=== PATIENT | female | born 1940 | race Caucasian/White ===

== ENCOUNTER 2020-06-26 11:13 | Observation (INO) | payer MEDICARE, MEDICAID ==
[2020-06-19 16:03] LABS: BASOPHILS % (AUTO) 0.3 % (0-1); EOSINOPHILS # (AUTO) 0.1 X10'3 (0-0.9); EOSINOPHILS % (AUTO) 1.4 % (0-6); LYMPHOCYTES # (AUTO) 0.9 X10'3 (1.1-4.8); LYMPHOCYTES % (AUTO) 22.4 % (21-51); MEAN CORPUSCULAR HEMOGLOBIN 30.4 PG (27.0-31.0); MEAN CORPUSCULAR HGB CONC 33.3 g/dL (33.0-36.5); MEAN CORPUSCULAR VOLUME 91.5 FL (78-98); MEAN PLATELET VOLUME 7.4 FL (7.4-10.4); MONOCYTES # (AUTO) 0.4 X10'3 (0-0.9); MONOCYTES % (AUTO) 11.1 % (2-12); NEUTROPHILS # (AUTO) 2.6 X10'3 (1.8-7.7); NEUTROPHILS % (AUTO) 64.8 % (42-75); PRE OP HEMATOCRIT 35.4 % (35.0-45.0); PRE OP HEMOGLOBIN 11.8 g/dL (12.0-16.0); PRE OP PLATELET COUNT 323 X10'3 (140-440); RED BLOOD COUNT 3.86 X10'6 (4.20-5.60); RED CELL DISTRIBUTION WIDTH 13.5 % (11.5-14.5)
[2020-06-19 16:11] LABS: ALBUMIN 3.8 G/DL (3.4-5.0); ALBUMIN/GLOBULIN RATIO 0.9 (1.1-1.5); ALKALINE PHOSPHATASE 98 IU/L (46-116); BLOOD UREA NITROGEN 24 MG/DL (7-18); BUN/CREATININE RATIO 27.9 (6.6-38.0); CALCIUM 9.2 MG/DL (8.5-10.1); CHLORIDE 103 MMOL/L (99-107); CREATININE 0.86 MG/DL (0.40-0.90); PRE OP ALT 34 U/L (30-65); PRE OP ANION GAP 4 (8-16); PRE OP AST 28 U/L (10-37); PRE OP BILIRUB, TOTAL 0.4 MG/DL (0.0-1.0); PRE OP GLUCOSE 103 MG/DL (70-104); PRE OP POTASSIUM 4.5 MMOL/L (3.4-5.1); PRE OP SODIUM 139 MMOL/L (135-145); TOTAL CARBON DIOXIDE 31.9 MMOL/L (24-32); TOTAL PROTEIN 8.1 G/DL (6.4-8.2); eGFR 64 ML/MIN
[2020-06-26] VITALS (21 sets, daily range): BP systolic 111–174; BP diastolic 70–106
[~2020-06-26] VITALS: Ht 147.3 cm; Wt 69.0 kg
[~2020-06-26 11:13] MED LIST: HYDR-4070 PO; ceFAZolin 2gm in dextrose, iso 50 ML IV ONE; famotidine 20mg tablet PO ONE; ringers solution, lacted 1,000 ML IV SCH
[2020-06-26] MEDS ORDERED: BUPIVAcaine 0.25% w/Epi /PF 30ml vial ONE ×2 (15:14→16:52)
[2020-06-26] MEDS ORDERED: hydrALAZINE 20mg/ml inj. IV PRN (15:15)
[2020-06-26] MEDS ORDERED: ringers solution, lacted 1,000 ML IV SCH (15:15)
[2020-06-26] MEDS ORDERED: proCHLORperazine 10 MG/2 ml inj IV PRN (15:15)
[2020-06-26] MEDS ORDERED: acetaminophen 1,000mg/100ml IV 100 ML IV PRN (15:15)
[2020-06-26] MEDS ORDERED: meperidine/PF 25mg/ml syringe IV PRN ×3 (15:15)
[2020-06-26] MEDS ORDERED: ondansetron/PF 4mg/2ml inj IV PRN ×2 (15:15→17:30)
[2020-06-26] MEDS ORDERED: labetalol 20mg/4ml (5mg/ml) syringe IV PRN (15:15)
[2020-06-26] MEDS ORDERED: morphine 2 MG/ML inj. syringe IV PRN (15:15)
[2020-06-26] MEDS ORDERED: fentaNYL/PF 50MCG/1 ML 2ML syringe ONE (15:24)
[2020-06-26] MEDS ORDERED: propofol inj 20 ML IV ONE ×3 (15:46)
[2020-06-26] MEDS ORDERED: midazolam 1 mg/ML 2ml injection ONE (15:55)
[2020-06-26] MEDS ORDERED: magnesium hydroxide 30ml (MOM) UD suspension PO PRN (17:30)
[2020-06-26] MEDS ORDERED: diphenhydrAMINE 50 mg/ml inj IV PRN (17:30)
[2020-06-26] MEDS ORDERED: mag hydrox/Alum hydrox/simeth 30ml oral suspension PO PRN (17:30)
[2020-06-26] MEDS ORDERED: zolpidem 5mg tablet PO PRN (17:30)
[2020-06-26] MEDS ORDERED: CADD PCA waste documentation MC PRN (17:30)
[2020-06-26] MEDS ORDERED: naloxone 0.4 mg/ml inj IV PRN (17:30)
--- NOTE | 2020-06-26 17:34 | NUR ---
Received from OR via surgical bed, accompanied by Anesthesiologist Reid and report given by Anesthesiolgist. VS stable, pt answering questions, no pain, no sensation below umbilicus. Mcdonald cath draining clear urine, anna pad placed and bleeding observed, clotting. Reported to Dr Grimm and he states to be expected, pressure applied with pad. IVF LR at 100cc/hr. SCDs on.
[2020-06-26] MEDS: HYDROmorphone/NS 1 mg/ml CADD 50 ML IV SCH ×4 (18:17→23:00)
--- NOTE | 2020-06-26 19:00 | NUR ---
Patient in Recovery. I have received report from Josi CANNON and had the opportunity to ask questions awaiting pt arrival to room 349A. Concern for high BP and vaginal bleeding has been reported, will continue to monitor. Addendum: 06/26/20 at 1903 by Chanel Grajeda RN Amended: Links added.
--- NOTE | 2020-06-26 19:44 | NUR ---
Report called to receiving nurse. Transferred via surgical bed. Belongings sent with patient. Special Issues communicated to receiving nurse, Chanel CANNON. BLL call light within reach, chart at bedside. Pain tolerable. Daughter at bedside to help translate and settle patient in.
[2020-06-26] MEDS: docusate sod 100mg capsule PO SCH (20:00)
[2020-06-26] MEDS: simethicone 80mg chew tab PO SCH (20:24)
[2020-06-26] MEDS: ringers solution, lacted 1,000 ML IV SCH (21:15)
--- NOTE | 2020-06-26 22:30 | NUR ---
Cyn pad changed, saturated with large clot. Ice chip given, F/C draining clear urine. Denies pain, pt able to use STRAIGHT CUTTER button and call light appropriately. Addendum: 06/26/20 at 2241 by Chanel Grajeda RN Amended: Links added.
[2020-06-27] VITALS: BP 173/95
[2020-06-27] MEDS: HYDROmorphone/NS 1 mg/ml CADD 50 ML IV SCH ×4 (01:00→07:00)
[2020-06-27] MEDS: ringers solution, lacted 1,000 ML IV SCH ×2 (01:30→04:20)
--- NOTE | 2020-06-27 02:15 | NUR ---
Cyn pad change d/t saturation however has decreased since last changed.
[2020-06-27 04:00] VITALS: BP 142/89
--- NOTE | 2020-06-27 04:29 | NUR ---
Cyn pad changed significant decrease in drainage, at this time not saturated. Addendum: 06/27/20 at 0429 by Chanel Grajeda RN Amended: Links added.
--- NOTE | 2020-06-27 06:14 | NUR ---
Problems reprioritized. Patient report given, questions answered & plan of care reviewed with Charmaine CANNON. Addendum: 06/27/20 at 0615 by Chanel Grajeda RN Amended: Links added.
--- NOTE | 2020-06-27 06:33 | NUR ---
Patient in room [facility]. I have received report from DAVIS Buchanan and had the opportunity to ask questions and assume patient care.
[2020-06-27 06:39] LABS: BASOPHILS % (AUTO) 0.1 % (0-1); EOSINOPHILS % (AUTO) 0.2 % (0-6); HEMATOCRIT 29.3 % (35.0-45.0); HEMOGLOBIN 9.8 g/dl (12.0-16.0); LYMPHOCYTES # (AUTO) 0.5 X10'3 (1.1-4.8); LYMPHOCYTES % (AUTO) 10.4 % (21-51); MEAN CORPUSCULAR HEMOGLOBIN 31.2 PG (27.0-31.0); MEAN CORPUSCULAR HGB CONC 33.5 g/dL (33.0-36.5); MEAN CORPUSCULAR VOLUME 93.2 FL (78-98); MONOCYTES # (AUTO) 0.5 X10'3 (0-0.9); MONOCYTES % (AUTO) 10.1 % (2-12); NEUTROPHILS # (AUTO) 3.8 X10'3 (1.8-7.7); NEUTROPHILS % (AUTO) 79.2 % (42-75); PLATELET COUNT 196 X10'3 (140-440); RED BLOOD COUNT 3.14 X10'6 (4.20-5.60); RED CELL DISTRIBUTION WIDTH 14.1 % (11.5-14.5); WHITE BLOOD COUNT 4.8 X10'3 (4.5-11.0)
[2020-06-27 08:00] VITALS: BP 134/65
[2020-06-27] MEDS: docusate sod 100mg capsule PO SCH (08:14)
[2020-06-27] MEDS: simethicone 80mg chew tab PO SCH ×2 (08:14→13:48)
[2020-06-27] MEDS ORDERED: HYDROcodone/acetaminophen 10/325mg tab PO PRN (09:00)
[2020-06-27] MEDS ORDERED: HYDROcodone/acetaminophen 5mg/325mg tablet PO PRN (09:00)
[2020-06-27 12:00] VITALS: BP 151/80
--- NOTE | 2020-06-27 12:22 | NUR ---
Pt unable to void after ramon cath removal at 0530. Dr Grimm gave TO to reinsert Ramon cath and sent pt home with it. 16F Ramon cath placed. 500ml of clear yellow urine collected. Pt tolerated procedure well.
[2020-06-27] MEDS ORDERED: HYDR-3965 PO (13:45)
--- NOTE | 2020-06-27 16:50 | NUR ---
Pt discharged home in stable condition. discharge, follow up, and medication instructions given to patient and daughter Kaitlynn. IV removed. Pt was sent home with Mcdonald cath per DR Grimm. education on cath care provided. Pt left the hospital via private vehicle accompanied by family member.
--- NOTE | 2020-06-29 14:03 | NUR ---
CASE MANAGEMENT DISCHARGE FOLLOW UP: Spoke with pt's daughter, Kaitlynn, via telephone. She reports that pt is doing really good. Per daughter, pt denies pain, bleeding, fever, CP, SOB. Pt does complain of excessive flatus, denies BM. States pt has appt tomorrow, 06/30/20, for urethral catheter removal, advised to notify MD of no BM and excessive flatus. Pt's daughter verbalizes understanding. Verbalizes understanding of s/sx requiring further evaluation/emergent assistance. Verbalizes understanding of new and current medications. Verbalizes compliance with MD discharge instructions. Both pt and her daughter state no further questions/concerns at this time.
== END 2020-06-27 16:40 | disposition home or self-care (01) ==
LOC: INTOOBSV 11:13 → PAS IN 11:13 → EDSTATUS 12:45 → SUR 3N 17:43
PROVIDERS: ADMIT Obstetrics & Gynecology; ATTEND Obstetrics & Gynecology
DX: N81.3 Complete uterovaginal prolapse (principal); N72 Inflammatory disease of cervix uteri; I10 Essential (primary) hypertension; M19.90 Unspecified osteoarthritis, unspecified site; N94.89 Other specified conditions associated with female genital organs and menstrual cycle; L90.5 Scar conditions and fibrosis of skin; L29.9 Pruritus, unspecified; Z79.899 Other long term (current) drug therapy; R20.9 Unspecified disturbances of skin sensation; L91.8 Other hypertrophic disorders of the skin
CPT/HCPCS: 11200; 36415; 57120; 58260; 80053; 82948; 85025; 86885; 86900; 86901; 87081; 93005; 96361; 96365; 96366; 96375; A6402; C1758; G0378; J0360; J1170; J2250; J2704; J3010; J7120; 88304; 88305; A4215; A4355; A4618; A7000